=== PATIENT | male | born 1975 | race Asian ===

== ENCOUNTER → 2024-06-29 12:06 | Outpatient (CLI) | payer OTHER, SELFPAY ==
--- NOTE | 2024-06-29 12:10 | DI.MRI.S_ITS ---
PROCEDURE: MR LUMBAR SPINE WO CON INDICATIONS: backpain TECHNIQUE: Noncontrast sagittal T1 spin echo and T2 fast echo, sagittal STIR, and T2 fast spin echo through the lumbar spine. In cases with scoliosis, additional coronal T2 fast spin echo may be performed. COMPARISON: None. FINDINGS: Image quality: Diagnostic Alignment and Curvature: There is normal bony alignment. Bone Marrow: No acute fracture. Mild disc desiccation at L4-L5 and L5-S1 Spinal Cord: Conus terminates in expected position. Unremarkable cauda equina nerve roots Paraspinous Soft Tissues: No paravertebral fluid collection or mass identified T12-L1: No stenosis L1-L2: Mild facet arthropathy. No stenosis L2-L3: Mild diffuse disc bulge and facet arthropathy. No stenosis. L3-L4: Mild diffuse disc bulge and facet arthropathy. No stenosis. L4-L5: Small central disc protrusion and annular fissure. Small diffuse disc bulge and mild facet arthropathy. [id number] left and mild right neural foraminal narrowing. L5-S1: Small diffuse disc bulge and central protrusion. Mild bilateral facet arthropathy. [id number]-ib-[id number] left and right neural foraminal narrowing. Small annular fissure. IMPRESSION: Overall low-grade L4-L5 and L5-S1 spondylosis mostly due to disc disease. No critical stenosis. No acute fracture. Dictated by: Ilya Mcclain M.D. on 06/30/2024 at 7:48 Approved by: Ilya Mcclain M.D. on 06/30/2024 at 7:51
== END ==
DX: M47.816 Spondylosis without myelopathy or radiculopathy, lumbar region (principal); M47.817 Spondylosis without myelopathy or radiculopathy, lumbosacral region; M51.360 Other intervertebral disc degeneration, lumbar region with discogenic back pain only; M51.370 Other intervertebral disc degeneration, lumbosacral region with discogenic back pain only; M51.26 Other intervertebral disc displacement, lumbar region; M51.27 Other intervertebral disc displacement, lumbosacral region
CPT/HCPCS: 72148